=== PATIENT | female | born 2005 | race Two or more races ===

== ENCOUNTER 2024-04-01 18:41 | Emergency (ER) | payer SELFPAY ==
--- NOTE | ~2024-04-01 | CT_ITS ---
EXAMINATION: CT abdomen pelvis w con DATE: 04/01/2024 20:20 INDICATION: LOWER ABDOMINAL PAIN TECHNIQUE: Computed tomography (CT) of the abdomen and pelvis was performed with 100 mL Omnipaque-350 intravenous contrast. Automated exposure control and iterative reconstruction technique were employe d. The dose-length product was 874.58 mGy-cm. COMPARISON: None. FINDINGS: Lower thorax: Unremarkable Liver: Normal. Biliary/Gallbladder: Gallbladder is normal. No bile duct dilation. Pancreas: No mass or duct dilation. Spleen: Normal. Adrenals:No mass. Kidneys: No suspicious mass, obstructing stone, or hydronephrosis. GI tract: Multiple loops of mildly dilated small bowel in the left upper quadrant, no wall thickening , surrounding inflammatory change, pneumatosis, transition point, or abnormal enhancement detected. N o large bowel dilation. Normal appendix. Mesentery/Peritoneum: No ascites, mass, or free air. Retroperitoneum: No mass. Pelvis: Pelvic organs are within normal limits. Left corpus luteal cyst. Physiologic free pelvic flui d. Soft Tissues: Soft tissues and body wall unremarkable. Bones: No acute osseous finding. IMPRESSION: Multiple loops of mildly dilated small bowel in the left upper quadrant, may represent ileus and/or e nteritis. Early/partial obstruction considered less likely, but not excluded. Otherwise, no acute abdominopelvic process detected Reviewed, dictated and finalized at location K. IMPRESSION: Multiple loops of mildly dilated small bowel in the left upper quadrant, may re present ileus and/or enteritis. Early/partial obstruction considered less likel y, but not excluded. Otherwise, no acute abdominopelvic process detected
[2024-04-01 18:57] VITALS: BP 133/90; PULSE 72; RESP 16; TEMP 36.7; O2SAT 100
--- NOTE | 2024-04-01 18:57 | ED.ABDPAIN ---
HPI - Abdominal Pain General Chief Complaint: Abdominal Pain Stated Complaint: abd pain Time Seen by Provider: 04/01/24 18:56 Source: patient History of Present Illness HPI narrative: 19 YEARS OLD FEMALE PRESENTS WITH INTERMITTENT LOWER ABDOMINAL PAIN FOR THE LAST 5 DAYS CRAMPS, SHARP, WORSE TODAY, DENIES AGGRAVATING OR RELIEVING FACTORS, ASSOCIATED WITH NAUSEA, SHE DENIES ANY FEVER, CHILLS, VOMITING, DIARRHEA, PATIENT TRIED MIRALAX THINKING SHE MIGHT BE CONSTIPATED WITHOUT ANY IMPROVEMENT. SHE DENIES HISTORY OF ABDOMINAL SURGERY, LAST MENSTRUAL PERIOD WITHIN THE LAST 4 WEEKS. Related Data Allergies Allergy/AdvReac Type Severity Reaction Status Date / Time No Known Allergies Allergy Verified 04/01/24 18:56 Review of Systems Review of Systems: All systems reviewed & are unremarkable except as noted in HPI and below Exam Narrative: GENERAL APPEARANCE: WELL-DEVELOPED, WELL-NOURISHED SKIN: NORMAL COLOR HEAD: NORMOCEPHALIC, NONTRAUMATIC EYES: CLEAR CONJUNCTIVA ENT: OROPHARYNX NORMAL, EARS NORMAL, NOSE NORMAL NECK: SUPPLE, NONTENDER CHEST AND RESPIRATORY: AIRWAY PATENT, NO RESPIRATORY DISTRESS, NO ACCESSORY MUSCLE USE HEART: REGULAR RATE/RHYTHM ABDOMEN: SOFT, NONTENDER, NO ORGANOMEGALY, QUIET BOWEL SOUNDS VASCULAR: NORMAL PERIPHERAL PULSES, NORMAL CAPILLARY REFILL. MUSCULOSKELETAL: NORMAL RANGE OF MOTION, NONTENDER BACK NEUROLOGIC: ALERT AND ORIENTED ?3, MOBILE APPLICATION ENGINEER IS NORMAL TESTED, NO GROSS MOTOR DEFICIT Course Vital Signs Vital signs: Vital Signs Temperature 36.7 C 04/01/24 18:57 Pulse Rate 72 04/01/24 18:57 Respiratory Rate 16 04/01/24 18:57 Blood Pressure 133/90 04/01/24 18:57 Pulse Oximetry 100 04/01/24 18:57 Oxygen Delivery Room Air 04/01/24 18:57 Temperature 36.7 C 04/01/24 18:57 Pulse Rate 72 04/01/24 18:57 Respiratory Rate 16 04/01/24 18:57 Blood Pressure 133/90 04/01/24 18:57 Pulse Oximetry 100 04/01/24 18:57 Oxygen Delivery Room Air 04/01/24 18:57 MDM - Abdominal Pain MDM Narrative Medical decision making narrative: DIFFERENTIAL DIAGNOSIS INCLUDE URINARY TRACT INFECTION, , CONSTIPATION, COLITIS, DIVERTICULITIS, APPENDICITIS, MUSCULAR WALL PAIN LABORATORY WORK OBTAINED ON THIS PATIENT AND SHOWED NO ACUTE ABNORMALITIES, URINALYSIS WITHIN NORMAL LIMIT, CT ABDOMEN AND PELVIS WITH IV CONTRAST SHOWED NO ACUTE ABNORMALITY. EXCEPT SOME FLUID INSIDE THE COLON WHICH HIGH LIKELY SECONDARY TO MIRALAX USE LATELY. FOR ENTERITIS OR OBSTRUCTION IS EXTREMELY LESS LIKELY. PATIENT DENYING ANY VOMITING OR DIARRHEA. MY PLAN TO DISCHARGE PATIENT ON BENTYL COULD BE STRESS RELATED WORSE WITH MIRALAX INTAKE LATELY. PATIENT FEELING GREAT AT THE TIME OF DISCHARGE Differential Diagnosis Differential diagnosis: Likely other ( ABOVE) Medical Records Attestation: I reviewed the patient's medical records. Lab Data Attestation: I reviewed the patient's lab results. 04/01/24 19:40 04/01/24 19:40 Labs: Lab Results 04/01/24 04/01/24 Range/Units 19:17 19:40 WBC 10.6 H (4.5-10.0) K/mm3 RBC 5.00 (4.2-5.4) M/mm3 Hgb 14.9 (12.0-15.0) g/dL Hct 45.5 (37.0-47.0) % MCV 91.0 (80-100) fl MCH 29.8 (26-34) pg MCHC 32.7 (32-36) g/dl RDW 12.5 (11.5-14.5) % Plt Count 299 (150-375) k/mm3 MPV 9.0 (7.4-10.4) fl Immature Gran % (Auto) 0.3 (0-0.5) % Neut % (Auto) 71.1 (45.5-73.1) % Lymph % (Auto) 22.8 (18.3-44.2) % Cavalier % (Auto) 4.4 (2.6-8.5) % Eos % (Auto) 1.2 (0-4.4) % Baso % (Auto) 0.2 (0.2-1.2) % Lymph # (Auto) 2.43 (0.9-3.2) K/mm3 Cavalier # (Auto) 0.5 (0.1-0.6) K/mm3 Eos # (Auto) 0.1 (0-0.3) K/mm3
--- NOTE | 2024-04-01 19:11 | PC.NURSE ---
Report given to JILL Rowan
[2024-04-01 19:34] LABS: Appearance Urine Clear (Clear); Bilirubin Urine Negative (Negative); Blood Urine Negative (Negative); Color Urine Yellow (Yellow); Glucose Urine UA Negative (Negative); Ketones Urine Negative (Negative); Leukocyte Esterase Ur Negative LEU/UL (Negative); Nitrate Urine Negative (Negative); Protein Urine Negative (Negative); Specific Grav Ur 1.015 (1.001-1.035); pH Urine 6.5 (5.0-9.0)
[2024-04-01 19:35] LABS: Add Urine Microscopic? NO
[2024-04-01] MEDS: SODIUM CHLORIDE 0.9% IV 1,000 ML 999 ML IV CONT (19:41)
[2024-04-01] MEDS: ONDANSETRON INJ 4 MG/2 ML VIAL IV PUSH (19:41)
[2024-04-01] MEDS: MORPHINE SULFATE (*CRX) 4 MG/ML INJ IV PUSH (19:42)
[2024-04-01 19:46] LABS: Basophils Percent Auto 0.2 % (0.2-1.2); Eosinophils Absolute Auto 0.1 K/mm3 (0-0.3); Eosinophils Percent Auto 1.2 % (0-4.4); Hematocrit 45.5 % (37.0-47.0); Hemoglobin 14.9 g/dL (12.0-15.0); Immature Granulocyte Absolute 0.03 K/mm3 (0.00-0.031); Immature Granulocyte Percent A 0.3 % (0-0.5); Lymphocytes Absolute Auto 2.43 K/mm3 (0.9-3.2); Lymphocytes Percent Auto 22.8 % (18.3-44.2); Mean Corpuscular HGB Conc 32.7 g/dl (32-36); Mean Corpuscular Hemoglobin 29.8 pg (26-34); Monocytes Absolute Auto 0.5 K/mm3 (0.1-0.6); Monocytes Percent Auto 4.4 % (2.6-8.5); Neutrophils Absolute Auto 7.6 K/mm3 (1.3-6.7); Neutrophils Percent Auto 71.1 % (45.5-73.1); Platelet Count Result 299 k/mm3 (150-375); Red Cell Distribution Width 12.5 % (11.5-14.5); White Blood Count 10.6 K/mm3 (4.5-10.0)
[2024-04-01 19:59] LABS: Alanine Aminotransferase 23 U/L (6-35); Albumin Level 4.8 g/dL (3.5-5.1); Alkaline Phosphatase 70 U/L (38-126); Anion Gap 7 mmol/L (4-12); Aspartate Amino Transferase 26 U/L (14-36); Bilirubin,Total 0.4 mg/dL (0.2-1.3); Blood Urea Nitrogen 12 mg/dL (7-17); Calcium 9.5 mg/dL (8.4-10.2); Carbon Dioxide 28 mmol/L (22-30); Chloride 103 mmol/L (98-107); Estimated CRCL calculation 140 ml/min; Estimated Glomerular Filt Rate > 60; Glucose 103 mg/dL (65-110); Lipase 55 U/L (23-300); Potassium 4.3 mmol/L (3.4-5.0); Sodium 138 mmol/L (137-145)
[2024-04-01 21:04] VITALS: BP 135/83; PULSE 59; RESP 14; O2SAT 99
== END 2024-04-01 21:07 | disposition home or self-care (01) ==
PROVIDERS: Emergency Provider Emergency Medicine
DX: R10.30 Lower abdominal pain, unspecified (principal); R93.5 Abnormal findings on diagnostic imaging of other abdominal regions, including retroperitoneum
CPT/HCPCS: 36415; 74177; 80053; 81003; 81025; 83690; 85025; 96361; 96374; 96375; 99284; J2270; J2405; J7030; Q9967